=== PATIENT | female | born 1965 | race Caucasian/White ===

== ENCOUNTER → 2017-12-13 | Outpatient (CLI) | payer BC | LOC: SUN.DIA 12:41 | DX: E11.9 Type 2 diabetes mellitus without complications (principal); I10 Essential (primary) hypertension; E66.9 Obesity, unspecified | CPT/HCPCS: G0108 ==

== ENCOUNTER → 2018-03-06 | Outpatient (CLI) | payer BC | LOC: SUN.DIA 09:26 | DX: E11.9 Type 2 diabetes mellitus without complications (principal); I10 Essential (primary) hypertension; E66.9 Obesity, unspecified | CPT/HCPCS: G0108 ==

== ENCOUNTER → 2018-06-04 | Outpatient (CLI) | payer BC | LOC: SUN.DIA 08:46 | DX: E11.9 Type 2 diabetes mellitus without complications (principal); I10 Essential (primary) hypertension; E66.9 Obesity, unspecified | CPT/HCPCS: G0108 ==

== ENCOUNTER → 2018-09-02 | Outpatient (CLI) | payer BC | LOC: DIA.ED 08:39 | DX: E11.9 Type 2 diabetes mellitus without complications (principal); I10 Essential (primary) hypertension; E66.9 Obesity, unspecified | CPT/HCPCS: G0108 ==

== ENCOUNTER → 2018-12-09 | Outpatient (CLI) | payer BC | LOC: DIA.ED 12-02 14:48 | DX: E11.9 Type 2 diabetes mellitus without complications (principal); I10 Essential (primary) hypertension; E66.9 Obesity, unspecified | CPT/HCPCS: G0108 ==

== ENCOUNTER → 2019-03-19 | Outpatient (CLI) | payer BC | LOC: DIA.ED 13:21 | DX: E11.9 Type 2 diabetes mellitus without complications (principal); Z79.84 Long term (current) use of oral hypoglycemic drugs; Z68.41 Body mass index [BMI] 40.0-44.9, adult; I10 Essential (primary) hypertension | CPT/HCPCS: G0108 ==

== ENCOUNTER → 2019-08-08 | Outpatient (CLI) | payer BC ==
[~2019-08-08] MED LIST: COREG 3.123.125 MG/T PO; LEVOXYL0.1 MG PO; NORVASC 10MG10 MG PO; ZESTORETIC 12.51 TA1 PO
== END ==
LOC: COL.RAD 13:21
DX: N17.9 Acute kidney failure, unspecified (principal)

== ENCOUNTER 2019-08-14 08:00 | Outpatient (CLI) | payer BC ==
[~2019-08-14] VITALS: Ht 160 cm; Wt 104.2 kg
[2019-08-14] VITALS (23 sets, daily range): BP systolic 102–140; BP diastolic 31–67; PULSE 55–72
[2019-08-14 09:03] LABS: INR 1.1 (0.8-3.0); PROTHROMBIN TIME 12.3 SECONDS (9.7-12.8)
--- NOTE | 2019-08-14 10:00 | NUR ---
PT WAS BROUGHT INTO CT IN HER BED BY STAFF. MONITORING EQUIPMENT PLACED. IMAGES TAKEN AND SENT
--- NOTE | 2019-08-14 10:14 | NUR ---
PT WAS GIVEN 1 MG VERSED AND 50 MCG FENTANYL
--- NOTE | 2019-08-14 17:30 | NUR ---
Discharge instructions given to pt by Nina Roach.pt escorted out via wheelchair.
== END 2019-08-14 17:41 | disposition home or self-care (01) ==
LOC: COL.RAD 08:00
PROVIDERS: Radiology Diagnostic Radiology
DX: N04.1 Nephrotic syndrome with focal and segmental glomerular lesions (principal); N17.9 Acute kidney failure, unspecified
CPT/HCPCS: 27433

== ENCOUNTER 2020-05-14 08:49 | Day surgery (SDC) | payer BC ==
[~2020-05-14] VITALS: Ht 160 cm; Wt 98.2 kg
[2020-05-14] MEDS ORDERED: TRULICITY0.75 MG/0. SQ (10:26)
[2020-05-14] MEDS ORDERED: ULORIC40 MG PO (10:27)
[2020-05-14] MEDS ORDERED: LASIX 40MG TABL40 MG PO (10:32)
[2020-05-14] MEDS ORDERED: VITAMIN D31000 IU PO (10:32)
[2020-05-14 10:33] LABS: HEMOGLOBIN 11.2 g/dl (12.5-16.0)
[2020-05-14] MEDS ORDERED: PEPCID 20MG TAB20 MG PO (10:33)
[2020-05-14] MEDS ORDERED: ZYRTEC 10MG10 MG PO (10:33)
[2020-05-14] MEDS ORDERED: IMODIUM AD1 MG/5 ML PO (10:36)
[2020-05-14] MEDS ORDERED: NIZORAL SHAMPO120 M1 TP (10:37)
[2020-05-14] MEDS ORDERED: MULTIVITAMIN PO (10:38)
[2020-05-14 10:39] LABS: HEMATOCRIT 34.7 % (37.0-47.0)
[2020-05-14 10:45] LABS: CALCIUM 9.1 mg/dL (8.4-10.2); CREATININE, serum 3.65 (0.52-1.25); POTASSIUM 5.2 mmol/L (3.4-5.0)
[2020-05-14] MEDS ORDERED: NORCO 325 MG-51 TAB PO (11:37)
[2020-05-14 13:21] VITALS: BP 117/49; PULSE 65; TEMP 98.4
[2020-05-14 14:28] VITALS: BP 144/43; PULSE 71; TEMP 98
[2020-05-14 14:40] VITALS: BP 160/52; PULSE 70
[2020-05-14 15:20] VITALS: BP 160/51; PULSE 79
--- NOTE | 2020-05-14 15:48 | NUR ---
PT RETURNED TO BAY #5 FROM THE OR. PT SLEEPY, ALERT TO NAME. O2 PER MASK AT 6L. O2 SATS FROM 88 TO 95% LUNGS CLEAR, BASES DIMINISHED. BOWEL SOUNDS PRESENT. VITAL SIGNS STABLE, AFEBRILE. REQUESTS SPRITE AND SERA CRACKERS FOR SNACK WHEN ASKED. WILL CONT TO MONITOR.
--- NOTE | 2020-05-14 15:55 | NUR ---
PT MORE ALERT, EYES OPEN, TOLERATING PO'S. PT DENIES NAUSEA OR PAIN AT THIS TIME. DRESSINGS ARE DRY TO AV FISTULA AND DIALYSIS CATHETER. PT UP TO THE BATHROOM WITHOUT DIFFICULTY. IV TO INT NEEDLE. WILL CONT TO MONITOR.
== END 2020-05-14 16:11 | disposition home or self-care (01) ==
LOC: SDCO 08:49
PROVIDERS: Surgery
DX: E11.22 Type 2 diabetes mellitus with diabetic chronic kidney disease (principal); I12.0 Hypertensive chronic kidney disease with stage 5 chronic kidney disease or end stage renal disease; N18.5 Chronic kidney disease, stage 5; E03.9 Hypothyroidism, unspecified; Q44.7 Other congenital malformations of liver; Z20.822 Contact with and (suspected) exposure to COVID-19; E66.9 Obesity, unspecified; Z68.38 Body mass index [BMI] 38.0-38.9, adult; Z80.9 Family history of malignant neoplasm, unspecified; Z79.899 Other long term (current) drug therapy; Z79.890 Hormone replacement therapy
CPT/HCPCS: J0690; J1644; J2704; J7030

== ENCOUNTER → 2020-09-07 | Outpatient (CLI) | payer BC ==
[~2020-09-07] MED LIST changes: +AURYXIA1 GM PO; +IMODIUM AD1 MG/5 ML PO; +LASIX 40MG TABL40 MG PO; +MULTIVITAMIN PO; +NIZORAL SHAMPO120 M1 TP; +NORCO 325 MG-51 TAB PO; +PEPCID 20MG TAB20 MG PO; +PRINZIDE 12.5 M1 TA1 PO; +TRULICITY0.75 MG/0. SQ; +ULORIC40 MG PO; +VITAMIN D31000 IU PO; +ZYRTEC 10MG10 MG PO
== END ==
LOC: COL.VAS 13:54
DX: Z01.818 Encounter for other preprocedural examination (principal); N18.5 Chronic kidney disease, stage 5; Z99.2 Dependence on renal dialysis

== ENCOUNTER 2020-10-28 08:15 | Outpatient (CLI) | payer BC ==
[~2020-10-28] VITALS: Ht 160.1 cm; Wt 96.3 kg
[~2020-10-28 08:15] MED LIST changes: -AURYXIA1 GM PO; -PRINZIDE 12.5 M1 TA1 PO
[2020-10-28 09:06] VITALS: BP 126/56; PULSE 69; TEMP 98.3
[2020-10-28] MEDS ORDERED: PRINZIDE 12.5 M1 TA1 PO (09:08)
[2020-10-28 09:10] LABS: HEMATOCRIT 35.8 % (37.0-47.0); HEMOGLOBIN 12.1 g/dl (12.5-16.0); MEAN CELL VOLUME 92 fl (80.0-100.0); MEAN CORPUSCULAR HEMOGLOBIN 31 pg (27.0-31.0); MEAN CORPUSCULAR HGB CONC 34 g/dl (33.0-37.0); MEAN PLATELET VOLUME 9.7 fl (7.4-10.4); PLATELET COUNT 193 K/mm3 (130-400); REDCELL DISTRIBUTION WIDTH-CV 13.5 % (11.5-14.5)
[2020-10-28 09:16] LABS: INR 1.1 (0.8-3.0); PROTHROMBIN TIME 11.7 SECONDS (9.7-12.8)
[2020-10-28 09:19] LABS: CALCIUM 9.2 mg/dL (8.4-10.2); CREATININE, serum 5.21 (0.52-1.25); POTASSIUM 3.7 mmol/L (3.4-5.0)
[2020-10-28] MEDS ORDERED: AURYXIA1 GM PO (09:26)
[2020-10-28 10:35] VITALS: BP 120/50; PULSE 75
[2020-10-28 10:45] VITALS: BP 127/58; PULSE 73
[2020-10-28 11:00] VITALS: BP 129/56; PULSE 74
[2020-10-28 11:15] VITALS: BP 128/54; PULSE 74
[2020-10-28 11:30] VITALS: BP 131/51; PULSE 73
--- NOTE | 2020-10-28 12:15 | NUR ---
Discharge instructions given to pt.pt verbalizes understanding.INt removed,catheter tip intact.
--- NOTE | 2020-10-28 12:30 | NUR ---
Pt ride arrived,pt escorted out via wheelchair by Student Nurse.
== END 2020-10-28 13:12 ==
LOC: COL.RAD 08:15
PROVIDERS: Internal Medicine Cardiovascular Disease
DX: Q22.1 Congenital pulmonary valve stenosis (principal); I45.10 Unspecified right bundle-branch block
CPT/HCPCS: J2704; J7030

== ENCOUNTER 2021-03-08 08:15 | Outpatient (RCR) | payer BC ==
[~2021-03-08 08:15] MED LIST changes: +AURYXIA1 GM PO; +PRINZIDE 12.5 M1 TA1 PO
== END 2021-03-14 | disposition home or self-care (01) ==
LOC: WSST
DX: R49.0 Dysphonia (principal)

== ENCOUNTER 2021-04-05 08:15 | Outpatient (RCR) | payer BC, MEDICARE | END 2021-04-11 | disposition home or self-care (01) | LOC: WSST | DX: R49.0 Dysphonia (principal) ==

== ENCOUNTER 2021-05-10 08:15 | Outpatient (RCR) | payer BC, MEDICARE | END 2021-05-12 | disposition home or self-care (01) | LOC: WSST | DX: R49.0 Dysphonia (principal) ==

== ENCOUNTER → 2021-05-23 | Outpatient (CLI) | payer BC, MEDICARE ==
[2021-05-23 13:52] LABS: CALCIUM 9.1 mg/dL (8.4-10.2); CREATININE, serum 3.21 mg/dL (0.57-1.11); POTASSIUM 3.2 mmol/L (3.5-4.5)
== END ==
LOC: COL.RAD 05-17 13:30 → COL.LAB 13:18 → COL.RAD 14:00
PROVIDERS: Internal Medicine Cardiovascular Disease
DX: Z01.812 Encounter for preprocedural laboratory examination (principal)
CPT/HCPCS: Q9967

== ENCOUNTER 2021-06-07 08:15 | Outpatient (RCR) | payer BC, MEDICARE | END 2021-06-11 | disposition home or self-care (01) | LOC: WSST | DX: R49.0 Dysphonia (principal) ==

== ENCOUNTER 2021-06-28 10:17 | Day surgery (SDC) | payer BC, MEDICARE ==
[~2021-06-28] VITALS: Ht 160 cm; Wt 95.5 kg
[2021-06-28 12:05] LABS: CALCIUM 9.4 mg/dL (8.4-10.2); CREATININE, serum 3.81 mg/dL (0.57-1.11); POTASSIUM 3.8 mmol/L (3.5-4.5)
[2021-06-28 13:03] VITALS: BP 137/41; PULSE 65; TEMP 98.2
[2021-06-28] MEDS ORDERED: NORCO 325 MG-51 TAB PO (13:26)
[2021-06-28 13:30] VITALS: BP 146/43; PULSE 70; TEMP 97.8
--- NOTE | 2021-06-28 13:37 | NUR ---
PT ON 4L PER MASK.
[2021-06-28 13:45] VITALS: BP 131/59; PULSE 73
--- NOTE | 2021-06-28 13:45 | NUR ---
PT ON 4L O2. PT CONTINUES TO SLEEP. DENIES ANY ADDITIONAL NEEDS AT THIS TIME. WILL CONTINUE TO MONITOR.
--- NOTE | 2021-06-28 13:50 | NUR ---
PT DECREASED TO 2L PER MASK.
[2021-06-28 14:00] VITALS: BP 148/47; PULSE 71
--- NOTE | 2021-06-28 14:00 | NUR ---
PT DECREASED TO 2L O2. PT LESS SLEEPY. PT DENIES ANY NEEDS AT THIS TIME.
[2021-06-28 14:15] VITALS: BP 157/43; PULSE 71
--- NOTE | 2021-06-28 14:15 | NUR ---
PT ON RA. TOLERATING DIET PEPSI AND APPLESAUCE. PT STATES SHE IS READY FOR DC.
--- NOTE | 2021-06-28 14:35 | NUR ---
DISCHARGE EDUCATION COMPLETED WITH PT. VERBALIZED UNDERSTANDING OF HOME AND FOLLOW UP CARE. ALL QUESTIONS ANSWERED. DISCHARGE PAPERWORK GIVEN TO PT. IV DC'D AT THIS TIME. PT TOLERATED WELL.
--- NOTE | 2021-06-28 14:45 | NUR ---
PT OFF UNIT PER WHEELCHAIR. PT DISCHARGE TO HOME WITH STEP-DAUGHTER PER PERSONAL VEHICLE.
--- NOTE | 2021-06-28 15:20 | NUR ---
PT BAY 5 PER CART FROM OR. RECEIVED REPORT FROM KENDELL GUTHRIE AND DEIRDRE KEENE. PT RESTING COMFORTABLY. PT SLEEPY AND DENIES ANY NEEDS AT THIS TIME.
== END 2021-06-28 14:45 | disposition home or self-care (01) ==
LOC: SDCO 10:17
PROVIDERS: Surgery
DX: K42.9 Umbilical hernia without obstruction or gangrene (principal); E11.22 Type 2 diabetes mellitus with diabetic chronic kidney disease; I12.0 Hypertensive chronic kidney disease with stage 5 chronic kidney disease or end stage renal disease; N18.6 End stage renal disease; Z99.2 Dependence on renal dialysis; Z79.899 Other long term (current) drug therapy
CPT/HCPCS: C1781; J0690; J2250; J2704

== ENCOUNTER 2021-07-05 08:15 | Outpatient (RCR) | payer BC, MEDICARE | END 2021-07-12 | disposition home or self-care (01) | LOC: WSST | DX: R49.0 Dysphonia (principal) ==

== ENCOUNTER 2021-08-09 08:12 | Outpatient (RCR) | payer BC, MEDICARE | END 2021-08-11 | disposition home or self-care (01) | LOC: WSST | DX: R49.0 Dysphonia (principal) ==